=== PATIENT | female | born 1960 | race Caucasian/White ===

== ENCOUNTER 2018-10-21 07:16 | Day surgery (SDC) | payer OTHER ==
[2018-10-21] MEDS ORDERED: PROPOFOL 20 ML ×2 (08:26→08:39)
[2018-10-21] MEDS ORDERED: FENTAnyl 50 MCG/ML VIAL (08:26)
[2018-10-21] MEDS ORDERED: ONDANSETRON 4 MG INJ IV (08:30)
== END 2018-10-21 14:30 | disposition home or self-care (01) ==
LOC: GIL 07:16
DX: Z12.11 Encounter for screening for malignant neoplasm of colon (principal); K29.50 Unspecified chronic gastritis without bleeding; K62.1 Rectal polyp; K64.0 First degree hemorrhoids; K57.30 Diverticulosis of large intestine without perforation or abscess without bleeding; K29.80 Duodenitis without bleeding; E11.9 Type 2 diabetes mellitus without complications
CPT/HCPCS: 43239; 82962; 88305; 88312